=== PATIENT | male | born 1960 | race Caucasian/White ===

== ENCOUNTER 2023-04-04 11:00 | Outpatient (OUT) | payer BC, SELFPAY ==
--- NOTE | 2023-04-04 11:27 | XR_ITS ---
The [address] [address] Patient Name: MARGO WOODWARD MRN: [id number] date: 1960 Sex: M Assigned Patient Location: [facility] Current Patient Location: [facility] Accession/Order Number: [id number] Exam Date: 04/04/2023 11:20 Report Date: 04/04/2023 11:40 At the request of: OBIE BROWN Procedure: XR hip LT min 2V EXAM: Left hip HISTORY: . Chronic left hip pain M25.552, G89.29 . COMPARISON: None. TECHNIQUE: 2 views FINDINGS: There is mild to moderate narrowing of the hip joint superiorly. Small spurs are noted involving the femoral head. No fracture or dislocation is noted. There is slight sclerosis of the superior acetabular rim. XR/XR hip LT min 2V IMPRESSION: Mild to moderate osteoarthritic changes of the left hip. Electronically authenticated by: CALISTA KIM Date: 04/04/2023 11:40
== END 2023-04-04 11:01 | disposition home or self-care (01) ==
LOC: RAD 11:05
PROVIDERS: PCP Internal Medicine; Visit Provider Physician Assistant
DX: M25.552 Pain in left hip (principal); G89.29 Other chronic pain; M16.12 Unilateral primary osteoarthritis, left hip
CPT/HCPCS: 73502